=== PATIENT | male | born 1975 | race Caucasian/White ===

== ENCOUNTER 2019-05-07 08:15 | Inpatient (IN) ==
[2019-05-07 09:24] LABS: Bilirubin,Urine Negative (Negative); Blood,Urine Moderate (Negative); Clarity,Urine Clear (Clear); Color,Urine Yellow (Yellow); Glucose,Urine (UA) Normal (Normal); Ketones,Urine Negative (Negative); Leukocyte Esterase,Urine Negative (Negative); Nitrite,Urine Negative (Negative); PH,Urine 5.5 pH Units (5.0-8.0); Protein,Urine 100 mg/dL (Neg-Trace); Urobilinogen,Urine Normal (Normal)
[2019-05-07 09:26] LABS: Bacteria,Urine None Seen per hpf (None-Few); Hyaline Casts,Urine None Seen per lpf (None-Few); Squamous Epithelial Cell,Urine Few per lpf (None-Few); WBC,Urine 0-3 per hpf (0-3)
[2019-05-07 09:46] LABS: Basophils # 0.1 K/mcL (0.0-0.2); Basophils % 0.8 %; Eosinophils # 0.1 K/mcL (0.0-0.6); Eosinophils % 1.1 %; Hematocrit 44.3 % (37.5-50.1); Hemoglobin 15.3 g/dL (12.9-16.9); Immature Granulocytes % 0.4 % (0-4); Lymphocytes # 2.4 K/mcL (0.6-4.6); Lymphocytes % 21.5 %; Mean Corpuscular HGB Conc 34.5 g/dL (31.6-35.5); Mean Corpuscular Hemoglobin 29.8 pg (28.0-33.3); Mean Corpuscular Volume 86.2 fL (83.0-100.0); Mean Platelet Volume 11.5 fL (9.4-12.4); Monocytes # 0.6 K/mcL (0.0-1.3); Monocytes % 5.2 %; Platelet Count 248 K/mcL (140-400); Red Blood Count 5.14 M/mcL (4.19-5.50); White Blood Count 11.3 K/mcL (4.3-11.1)
[2019-05-07 10:02] LABS: BUN/Creatinine Ratio 11 (6-26); Blood Urea Nitrogen 11 mg/dL (6-20); Calcium 10.2 mg/dL (8.6-10.3); Carbon Dioxide 28 mEq/L (23-29); Chloride 101 mEq/L (98-107); Glucose 119 mg/dL (70-105); Osmolality,Calculated 287 (280-300); Potassium 4.2 mEq/L (3.5-5.1); Sodium 138 mEq/L (136-145); eGFR For African Americans > 60 (> 60); eGFR For Non-African Americans > 60 (> 60)
[2019-05-07] MEDS ORDERED: GI Cocktail 40 ML EACH PO ONE (10:13)
[2019-05-07] MEDS ORDERED: *HR* FentaNYL (PF) 100 MCG/2 ML VIAL IVP ONE (11:18)
[2019-05-07] MEDS ORDERED: Ondansetron 4 MG/2 ML VIAL IVP PRN (12:27)
[2019-05-07] MEDS ORDERED: Naloxone 0.4 MG/ML INJ IVP PRN (12:27)
[2019-05-07] MEDS ORDERED: *HR* Labetalol 20 MG/4 ML SYRINGE IVP PRN (12:27)
[2019-05-07 13:48] LABS: Lipase 32 Units/L (11-82)
[2019-05-07] MEDS: 0.9 % Sodium Chloride 1,000 ML IVC SCH ×2 (14:06→23:19)
[2019-05-07] MEDS: Pantoprazole 40 MG VIAL IVP SCH (14:06)
[2019-05-08 06:01] LABS: Basophils # 0.1 K/mcL (0.0-0.2); Basophils % 0.6 %; Eosinophils # 0.1 K/mcL (0.0-0.6); Eosinophils % 0.8 %; Hematocrit 39.8 % (37.5-50.1); Immature Granulocytes % 0.3 % (0-4); Lymphocytes # 2.5 K/mcL (0.6-4.6); Lymphocytes % 26.9 %; Mean Corpuscular HGB Conc 34.4 g/dL (31.6-35.5); Mean Corpuscular Hemoglobin 29.7 pg (28.0-33.3); Mean Corpuscular Volume 86.1 fL (83.0-100.0); Mean Platelet Volume 11.3 fL (9.4-12.4); Monocytes # 0.6 K/mcL (0.0-1.3); Monocytes % 6.6 %; Platelet Count 213 K/mcL (140-400); Red Blood Count 4.62 M/mcL (4.19-5.50); Red Cell Distribution Width 13.2 % (11.5-14.5); Segmented Neutrophils % 64.8 %; White Blood Count 9.3 K/mcL (4.3-11.1)
[2019-05-08 06:04] LABS: Hemoglobin 13.7 g/dL (12.9-16.9)
[2019-05-08 06:05] LABS: INR 1.2; Prothrombin Time 13.1 Seconds (9.4-12.1)
[2019-05-08 06:16] LABS: BUN/Creatinine Ratio 14 (6-26); Blood Urea Nitrogen 14 mg/dL (6-20); Calcium 8.9 mg/dL (8.6-10.3); Carbon Dioxide 31 mEq/L (23-29); Chloride 100 mEq/L (98-107); Glucose 108 mg/dL (70-105); Magnesium 1.9 mg/dL (1.6-2.6); Osmolality,Calculated 291 (280-300); Potassium 4.1 mEq/L (3.5-5.1); Sodium 140 mEq/L (136-145); eGFR For African Americans > 60 (> 60); eGFR For Non-African Americans > 60 (> 60)
[2019-05-08] MEDS: Pantoprazole 40 MG VIAL IVP SCH (09:33)
[2019-05-08] MEDS: 0.9 % Sodium Chloride 1,000 ML IVC SCH (09:35)
[2019-05-08] MEDS ORDERED: *HR* HYDROcodone/Acet 10/325 mg TABLET PO PRN (16:32)
[2019-05-08] MEDS: hydroCHLOROthiazide 25 MG TABLET PO SCH (18:07)
[2019-05-08] MEDS: traZODone 50 MG TABLET PO SCH (20:35)
[2019-05-09] MEDS: *HR* Enoxaparin 40 MG/0.4 ML SYRINGE SQ SCH (05:27)
[2019-05-09] MEDS: 0.9 % Sodium Chloride 1,000 ML IVC SCH (09:27)
[2019-05-09] MEDS: Pantoprazole 40 MG VIAL IVP SCH (09:30)
[2019-05-09] MEDS: hydroCHLOROthiazide 25 MG TABLET PO SCH (09:30)
[2019-05-09] MEDS: Ringers Solution, Lactated 1,000 ML IVC SCH (16:46)
[2019-05-09] MEDS: traZODone 50 MG TABLET PO SCH ×2 (20:35→20:43)
[2019-05-10] MEDS: Ringers Solution, Lactated 1,000 ML IVC SCH ×2 (00:42→12:57)
[2019-05-10 03:16] LABS: Basophils % 0.5 %; Eosinophils # 0.1 K/mcL (0.0-0.6); Eosinophils % 0.9 %; Hematocrit 38.5 % (37.5-50.1); Hemoglobin 13.2 g/dL (12.9-16.9); Immature Granulocytes % 0.5 % (0-4); Lymphocytes # 2.2 K/mcL (0.6-4.6); Lymphocytes % 25.3 %; Mean Corpuscular HGB Conc 34.3 g/dL (31.6-35.5); Mean Corpuscular Hemoglobin 29.7 pg (28.0-33.3); Mean Corpuscular Volume 86.7 fL (83.0-100.0); Mean Platelet Volume 11.6 fL (9.4-12.4); Monocytes # 0.6 K/mcL (0.0-1.3); Monocytes % 6.6 %; Neutrophils # 5.8 K/mcL (1.6-8.9); Platelet Count 218 K/mcL (140-400); Red Blood Count 4.44 M/mcL (4.19-5.50); Segmented Neutrophils % 66.2 %; White Blood Count 8.7 K/mcL (4.3-11.1)
[2019-05-10 03:56] LABS: BUN/Creatinine Ratio 14 (6-26); Blood Urea Nitrogen 15 mg/dL (6-20); Calcium 9.5 mg/dL (8.6-10.3); Carbon Dioxide 29 mEq/L (23-29); Chloride 100 mEq/L (98-107); Glucose 92 mg/dL (70-105); Osmolality,Calculated 290 (280-300); Potassium 3.8 mEq/L (3.5-5.1); Sodium 140 mEq/L (136-145); eGFR For African Americans > 60 (> 60); eGFR For Non-African Americans > 60 (> 60)
[2019-05-10 03:58] LABS: Magnesium 2.1 mg/dL (1.6-2.6); Phosphorous 4.3 mg/dL (2.7-4.5)
[2019-05-10] MEDS: *HR* Enoxaparin 40 MG/0.4 ML SYRINGE SQ SCH (05:13)
[2019-05-10] MEDS: Pantoprazole 40 MG VIAL IVP SCH (09:15)
[2019-05-10] MEDS: hydroCHLOROthiazide 25 MG TABLET PO SCH (09:16)
[2019-05-10] MEDS ORDERED: Ringers Solution, Lactated 1,000 ML IVC SCH (11:45)
[2019-05-10] MEDS: Metoclopramide 10 MG/10 ML UD.LIQ PO SCH ×2 (13:00→18:32)
[2019-05-10] MEDS: traZODone 50 MG TABLET PO SCH (21:30)
[2019-05-11] MEDS: Metoclopramide 10 MG/10 ML UD.LIQ PO SCH ×2 (00:38→05:11)
[2019-05-11] MEDS: *HR* Enoxaparin 40 MG/0.4 ML SYRINGE SQ SCH (05:11)
[2019-05-11 07:11] VITALS: BP 131/78
[2019-05-11] MEDS: hydroCHLOROthiazide 25 MG TABLET PO SCH (08:48)
[2019-05-11] MEDS: Pantoprazole 40 MG VIAL IVP SCH (08:48)
== END 2019-05-11 10:57 | disposition home or self-care (01) | DRG 247 ==
LOC: 3ANU 08:15 → EMEROOARM 08:15 → SUATTDRO 12:02 → 3ANU 13:05
PROVIDERS: ADMIT Internal Medicine; ATTEND Internal Medicine